=== PATIENT | female | born 1995 | race Caucasian/White ===

== ENCOUNTER 2020-12-24 11:16 | Inpatient (IN) | payer SELFPAY ==
[2020-12-24 11:27] VITALS: BP 132/85; PULSE 122; RESP 18; TEMP 37.2; O2SAT 98; BMI 32.3
[2020-12-24 11:41] VITALS: BP 131/80; PULSE 120; RESP 18; TEMP 37.1; O2SAT 98
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
--- NOTE | 2020-12-24 12:53 | ECG_ITS ---
[facility] Test Date: 2020-12-24 Pat Name: Tiffany Georges Department: Room: Gender: Female Hazardous Waste Technician: : 1995 Requested By: Ephraim Negron Order Number: [id number] Donato MD: Jackeline Martinez M.D. Measurements Intervals [place] Rate: 72 P: 29 [place]: 183 QRS: -4 QRSD: 94 T: 25 QT: 384 QTc: 420 Interpretive Statements SINUS RHYTHM No previous ECG available for comparison Electronically Signed On 12-26-2020 9:03:16 CDT by Jackeline Martinez M.D. [id number]
[2020-12-24 13:14] LABS: Basophils # 0.1 10^3/uL (0.0-0.1); Basophils % 0.6 %; Eosinophils # 0.1 10^3/uL (0.0-0.8); Eosinophils % 0.7 %; Hematocrit 38.4 % (37.0-47.0); Hemoglobin 12.8 g/dL (11.5-15.3); Lymphocytes # 1.3 10^3/uL (0.8-4.8); Lymphocytes % 11.6 %; Mean Corpuscular HGB Conc 33.3 g/dL (30.0-36.0); Mean Corpuscular Hemoglobin 30.2 pg (28.0-34.0); Mean Corpuscular Volume 90.6 fl (81-99); Mean Platelet Volume 10.8 fL (7.4-10.4); Monocytes # 0.9 10^3/uL (0.2-0.9); Monocytes % 7.9 %; Neutrophils # 9.15 10^3/uL (1.8-7.7); Neutrophils % 78.9 %; Nucleated Red Blood Cells % 0 %; Platelet Count 400 10^3/cmm (130-400); Red Blood Count 4.24 10^6/uL (4.1-5.3); White Blood Count 11.6 10^3/uL (4.0-10.0)
[2020-12-24 13:21] LABS: HCG Qualitative Urine. Negative (Negative)
[2020-12-24 13:24] LABS: Amphetamines Screen Urine Negative (Negative); Barbiturates Screen Urine Negative (Negative); Benzodiazepines Screen Urine Negative (Negative); Cocaine Screen Urine Negative (Negative); Opiate Screen Urine Negative (Negative); PCP Screen Urine Negative (Negative); THC Screen Urine Positive (Negative)
[2020-12-24 13:37] LABS: Alanine Aminotransferase 25 U/L (0-33); Albumin Level 4.3 g/dL (3.5-5.2); Alkaline Phosphatase 84 IU/L (35-105); Anion Gap 14.2 (5-19); Aspartate Amino Transferase 22 U/L (0-32); Blood Urea Nitrogen 11 mg/dL (6-20); Calcium 8.9 mg/dL (8.5-10.5); Carbon Dioxide 25 mmol/L (22-29); Chloride 104 mmol/L (98-107); Globulin 3.1 g/dL (1.3-4.6); Glomerular Filtration Rate 152.9 mL/min (90-130); Glucose 90 mg/dL (65-115); Osmolality Calculated 287 mOsm/kg (285-295); Potassium 4.2 mmol/L (3.5-5.1); Sodium 139 mmol/L (136-145); Total Bilirubin 0.3 mg/dL (0.15-1.2); Total Protein 7.4 g/dL (6.6-8.7)
[2020-12-24 13:53] LABS: Acetaminophen < 5.0 ug/mL (10-30); Salicylate < 0.3 mg/dL (3-10)
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
[2020-12-24 14:45] VITALS: BP 152/93; PULSE 93; O2SAT 98
[2020-12-24 17:02] LABS: Alcohol Level < 10 mg/dL (0-10)
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
[2020-12-24] MEDS: ARIPiprazole 10 mg Tablet 5 MG PO (20:41)
[2020-12-24 22:00] VITALS: BP 169/97; PULSE 73; RESP 17; RESP 18; TEMP 36.8; O2SAT 98
--- NOTE | 2020-12-24 22:36 | PC.NURSE ---
behavior Pt denies AVH, Denies SI/HI, Pt on the phone with ex boyfriend, smiling and interacts with staff appropriately. pt is currently resting in her room.
[2020-12-25 06:00] VITALS: BP 152/94; PULSE 92; RESP 18; TEMP 36.7; O2SAT 98
[2020-12-25] MEDS: ARIPiprazole 10 mg Tablet 5 MG PO ×2 (08:19→16:36)
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
[2020-12-25 14:00] VITALS: BP 146/86; PULSE 95; RESP 17; TEMP 36.6; O2SAT 98
[2020-12-25 19:57] VITALS: BP 145/86; PULSE 95; RESP 20; TEMP 36.9; O2SAT 96
[2020-12-26 06:00] VITALS: BP 128/70; PULSE 61; RESP 17; TEMP 36.7; O2SAT 98
[2020-12-26] MEDS: ARIPiprazole 10 mg Tablet PO (08:24)
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
[2020-12-26] MEDS: trazodone 50 mg Tablet PO (20:14)
--- NOTE | 2020-12-26 20:15 | PC.NURSE ---
PRN TRAZODONE 50 MG GIVEN PO PER PT C/O INSOMNIA. WILL CONT TO MONITOR
[2020-12-26 22:00] VITALS: BP 145/97; PULSE 102; RESP 18; TEMP 36.5; O2SAT 99
[2020-12-27 06:00] VITALS: BP 145/97; PULSE 102; RESP 18; TEMP 36.5; O2SAT 99
[2020-12-27 07:25] VITALS: BP 145/97; PULSE 102; RESP 18; TEMP 36.5; O2SAT 99
[2020-12-27] MEDS: ARIPiprazole 10 mg Tablet PO (07:49)
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
== END 2020-12-27 08:43 | disposition home or self-care (01) | DRG 885 ==
LOC: ER 12:35 → NP 15:43
PROVIDERS: Admitting Provider Psychiatry & Neurology Child & Adolescent Psychiatry; Emergency Provider Emergency Medicine; PCP Family Medicine; Visit Provider Psychiatry & Neurology Child & Adolescent Psychiatry
DX: F31.9 Bipolar disorder, unspecified (principal); R45.851 Suicidal ideations; F41.1 Generalized anxiety disorder; F41.0 Panic disorder [episodic paroxysmal anxiety]; F10.10 Alcohol abuse, uncomplicated; F12.90 Cannabis use, unspecified, uncomplicated; F40.10 Social phobia, unspecified; Z81.1 Family history of alcohol abuse and dependence; Z81.8 Family history of other mental and behavioral disorders
CPT/HCPCS: 80053; 80306; 80307; 81025; 85025; 93005; 99285